=== PATIENT | female | born 1985 | race Hispanic/Latino ===

== ENCOUNTER 2017-11-24 11:00 | Observation (INO) | payer BC ==
[2017-11-24 11:26] VITALS: BP 92/58; PULSE 82
== END 2017-11-24 12:00 | disposition home or self-care (01) ==
LOC: OB 11:00
PROVIDERS: ADMIT Family Medicine; ATTEND Family Medicine
DX: Z34.83 Encounter for supervision of other normal pregnancy, third trimester (principal)
CPT/HCPCS: G0378

== ENCOUNTER 2018-01-12 05:34 | Inpatient (IN) | payer BC ==
[2018-01-12] MEDS ORDERED: Lactated Ringers 1,000 ML IV ONE ×2 (05:42→07:02)
[2018-01-12] MEDS ORDERED: Pepcid 20 MG VIAL IV SCH (05:45)
[2018-01-12] MEDS ORDERED: Reglan 10 MG/2 ML IV SCH (05:45)
[2018-01-12] MEDS ORDERED: BICITRA 30 ML CUP PO SCH (05:45)
[2018-01-12] MEDS ORDERED: CEFAZOLIN 2 GM-D5W BAG** 2 GM/50 ML ML IV SCH (06:00)
[2018-01-12] MEDS ORDERED: Lactated Ringers 1,000 ML IV SCH (06:00)
[2018-01-12 06:01] LABS: Hematocrit 40.9 % (35-47); Hemoglobin 13.9 gm/dl (12.0-16.0); Mean Cell Volume 87.2 fl (78-100); Mean Corpuscular Hemoglobin 29.6 pg (26-32); Mean Platelet Volume 11.3 fl (6-9.5); Platelet Count 196 K/mm3 (150-450); Red Blood Count 4.69 M/mm3 (4.1-5.4); White Blood Count 7.1 K/mm3 (4.0-10.5)
[2018-01-12 06:05] LABS: Appearance SLIGHTLY CLOUDY (CLEAR); Bacteria MANY /HPF (NEGATIVE); Bilirubin NEGATIVE (NEGATIVE); Blood 50 Ery/ul (0-5); Epithelial Cells MANY /HPF (FEW); Glucose NEGATIVE (NEGATIVE); Ketones NEGATIVE (NEGATIVE); Leukocyte Esterase NEGATIVE (NEGATIVE); Mucus MODERATE /HPF (NEGATIVE); Nitrite NEGATIVE (NEGATIVE); Protein,Urine Dip NEGATIVE (Negative); Urobilinogen NORMAL mg/dL (0-1)
[2018-01-12 06:40] LABS: INR 0.9 (0.8-3.0)
[2018-01-12 06:43] LABS: PTT 29.8 SECONDS (25.3-37.0)
[2018-01-12 07:20] LABS: ABO TYPING B; Antibody Screen NEGATIVE (NEGATIVE); RH TYPING POSITIVE
[2018-01-12] MEDS ORDERED: HOLD NARCOTIC ANALGESICS AND SEDATIVES X24 HR MC PRN (07:42)
[2018-01-12] MEDS ORDERED: Narcan 0.4 MG/ML IV PRN (07:42)
[2018-01-12] MEDS ORDERED: BENADRYL 50 MG/ML IV PRN (07:42)
[2018-01-12] MEDS ORDERED: PERCOCET TABLET 5/325MG PO PRN (07:42)
[2018-01-12] MEDS ORDERED: DEMEROL 50 MG IV PRN (07:42)
[2018-01-12] MEDS ORDERED: Phenergan 25 MG INJ IM PRN (07:42)
[2018-01-12] MEDS ORDERED: Nubain 10 MG/ML IV PRN (07:42)
[2018-01-12] MEDS ORDERED: MORPHINE SULFATE 2 MG INJ IV PRN (07:42)
[2018-01-12] MEDS ORDERED: Zofran 4 MG/2 ML VIAL IV PRN (07:42)
[2018-01-12] MEDS ORDERED: CLARITIN 10 MG PO PRN (07:42)
[2018-01-12] MEDS ORDERED: LANSINOH 40 GM TOP PRN (07:45)
[2018-01-12] MEDS ORDERED: Dulcolax 10 MG SUPP PR PRN (07:45)
[2018-01-12] MEDS ORDERED: TYLENOL EXTRA STRENGTH 500 MG PO PRN (07:45)
[2018-01-12] MEDS ORDERED: Anucort-HC SUPPOSITORY PR PRN (07:45)
[2018-01-12] MEDS ORDERED: CORTISONE 1% CREAM TP PRN (07:45)
[2018-01-12] MEDS ORDERED: Mylicon 80MG PO PRN (07:45)
[2018-01-12] MEDS ORDERED: TUCKS TP PRN (07:45)
[2018-01-12] MEDS ORDERED: Dermoplast Spray TP PRN (07:45)
[2018-01-12] MEDS ORDERED: Dextrose 5%-Lr IV Solution 1000 ML 1,000 ML IV SCH (08:00)
[2018-01-12 08:24] LABS: Appearance CLEAR (CLEAR); Bilirubin NEGATIVE (NEGATIVE); Blood 50 Ery/ul (0-5); Glucose NEGATIVE (NEGATIVE); Ketones NEGATIVE (NEGATIVE); Leukocyte Esterase TRACE (NEGATIVE); Nitrite NEGATIVE (NEGATIVE); Protein,Urine Dip TRACE (Negative); Specific Gravity 1.015 (1.005-1.025); Urobilinogen NORMAL mg/dL (0-1)
--- NOTE | 2018-01-12 10:05 | OP ---
SURGERY DATE/TIME: 01/12/201814 PREOPERATIVE DIAGNOSES: 1) Term intrauterine . 2) History of prior section. POSTOPERATIVE DIAGNOSES: 1) Term intrauterine . 2) History of prior section. PROCEDURE: Repeat low transverse section. SURGEON: Ishan Kemp M.D. ESTIMATED BLOOD LOSS: 300 cc. URINE OUTPUT: 100 cc of clear straw-colored urine. ANESTHESIA: Spinal by Selvin Murray CRNA. SPECIMENS: None. DESCRIPTION OF PROCEDURE: After informed written consent was obtained, the patient was taken to the operating room. She underwent spinal anesthesia and was prepped and draped in the usual sterile fashion. After adequate level of anesthesia assessed, a low transverse skin incision was made by knife through the subcutaneous fat to the level of the fascia. The fascia was nicked on both sides of the midline extended in horizontal fashion using curved Benjamin scissors. The superior free edge of the fascia was then grasped with Janeth clamps and the underlying rectus muscles were dissected free. The peritoneal cavity was then opened bluntly and extended in horizontal fashion. Bladder blade was inserted. Bladder flap was created and reflected over the lower uterine segment. A horizontal uterine incision was made by knife and carried down to the level of the amniotic membranes which were carefully artificially ruptured. A viable female with a strong cry immediately upon delivery was delivered from the vertex presentation. The cord was clamped and cut and Dr. Oates then robed and scrubbed to care for the . The placenta was removed from the uterine cavity. The uterus was exteriorized. The uterine cavity was sponge curetted clean with lap sponge. The uterine incision was closed with #1 chromic in a running locked fashion. Good closure and good hemostasis were achieved. The posterior cul-de-sac was wiped free of blood and clot and the uterus was returned to the peritoneal cavity. Lateral gutters were wiped free of blood and clot. Again, the uterine incision is inspected and noted to be hemostatic with good closure. Next, the fascia was closed with 0 Vicryl in a running fashion with good closure and good hemostasis. Subcutaneous fat was irrigated with warm, sterile saline. Any areas of bleeding were cauterized with electrocautery. Finally the skin layer was closed with 4-0 undyed Vicryl in a running subcuticular fashion. Steri-Strips and occlusive dressing were placed over the incision. The patient was transferred to the recovery in good condition.
[2018-01-12 10:21] LABS: Amphetamine,Urine NEGATIVE (NEGATIVE); Barbiturate,Urine NEGATIVE (NEGATIVE); Benzodiazepine,Urine NEGATIVE (NEGATIVE); Cocaine,Urine NEGATIVE (NEGATIVE); Methadone,Urine NEGATIVE (NEGATIVE); Opiate,Urine NEGATIVE (NEGATIVE); PCP,Urine NEGATIVE (NEGATIVE); THC,Urine NEGATIVE (NEGATIVE)
[2018-01-12] MEDS ORDERED: Ephedrine Sulfate 50 MG/ML IV ONE (11:22)
[2018-01-12] MEDS ORDERED: PHENYLEPHRINE HCL IV ONE (11:22)
[2018-01-12] MEDS ORDERED: Pitocin 10 UNITS/ML IV ONE (11:22)
[2018-01-12] MEDS ORDERED: Astramorph-Pf 5 MG/10 ML IV ONE (11:22)
[2018-01-12] MEDS ORDERED: MARCAINE 0.5%-EPI 1:200,000 VL IJ ONE (11:22)
[2018-01-12] MEDS: FERREX 150 PO SCH (12:07)
[2018-01-12] MEDS: Colace 100 MG PO SCH ×2 (12:07→21:40)
[2018-01-12] MEDS ORDERED: ZOFRAN ODT 4 MG PO PRN (15:54)
[2018-01-13 06:20] LABS: Hematocrit 34.7 % (35-47); Hemoglobin 11.5 gm/dl (12.0-16.0); Mean Cell Volume 88.7 fl (78-100); Mean Corpuscular Hemoglobin 29.4 pg (26-32); Mean Corpuscular Hgb Concent. 33.1 g/dl (32-36); Mean Platelet Volume 11.3 fl (6-9.5); Platelet Count 192 K/mm3 (150-450); Red Blood Count 3.91 M/mm3 (4.1-5.4); Red Cell Distribution Width 16.7 % (11.5-14.0); White Blood Count 11.1 K/mm3 (4.0-10.5)
[2018-01-13] MEDS ORDERED: DEMEROL 75 MG IM PRN (07:42)
[2018-01-13] MEDS ORDERED: Ambien 10 MG PO PRN (07:45)
[2018-01-13] MEDS: NORCO 5/325 MG PO PRN ×2 (08:03→20:07)
[2018-01-13] MEDS: FERREX 150 PO SCH (09:10)
[2018-01-13] MEDS: Colace 100 MG PO SCH ×2 (09:10→20:07)
[2018-01-13 09:48] VITALS: O2SAT 100
[2018-01-13] MEDS: MOTRIN 400 MG PO PRN (16:14)
[2018-01-14] MEDS: MOTRIN 400 MG PO PRN (01:56)
[2018-01-14 09:36] VITALS: BP 99/57; PULSE 80
[2018-01-14] MEDS ORDERED: THERAGRAN MULTIVITAMIN PO SCH (10:00)
[2018-01-14] MEDS: NORCO 5/325 MG PO PRN (10:02)
[2018-01-14] MEDS: FERREX 150 PO SCH (10:03)
[2018-01-14] MEDS: Colace 100 MG PO SCH (10:03)
== END 2018-01-14 10:45 | disposition home or self-care (01) | DRG 766 ==
LOC: OB 05:34
PROVIDERS: ADMIT Family Medicine; ATTEND Family Medicine
PROC: 10D00Z1 Extraction of Products of Conception, Low, Open Approach (ICD-10-PCS; principal; 2018-01-12)
DX: O34.211 Maternal care for low transverse scar from previous cesarean delivery (principal); Z37.0 Single live birth; Z3A.37 37 weeks gestation of pregnancy
CPT/HCPCS: 36415; 62322; 64488; 76937; 76942; 80307; 81000; 81002; 85027; 85610; 85730; 86850; 86900; 86901; 87086; 94799; J0690; J2274; J2370; J2405; J2590; A9270-GY

== ENCOUNTER 2020-02-12 17:29 | Emergency (ER) | payer BC, SELFPAY ==
[2020-02-12 17:40] VITALS: O2SAT 100
--- NOTE | 2020-02-12 18:27 | ERPHSYRPT ---
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 bleeding controlled on arrival, dressed with bandaid from home. approx 1.5 cm lac noted. no loss sensation distal injury. pt has fingernail [place] citizen on so unable to assess cap refil, however skin is pink warm and dry distally and proximal to injury. rates 7/10 pain. reports up to date on tetanus vaccination Physician History: Patient is a 34-year-old female presents to our ED with laceration to her left thumb. Patient was cutting watermelon at home when she accidentally injured herself. Injury occurred just prior to arrival. Laceration is 1.5 cm in length. Laceration is superficial. No involvement of the tendon. Pain is well localized. No radiation. Pain worse with palpation. There is no trauma associated with this injury. No indication for x-ray at this time. No other injuries reported. Tetanus is up-to-date. Patient otherwise healthy. Patient declined pain medication. She voiced no other complaints at this time. Timing/Duration: today Quality: burning Severity: mild Location: other (Left thumb) Possible Causes: other Modifying Factors: Improves With: other Associated Symptoms: denies symptoms Allergies/Adverse Reactions: No Known Drug Allergies Allergy (Verified 11/24/17 11:19) Home Medications: Multivitamin [Multi-Vitamin Daily] 1 each PO DAILY 02/12/20 [History] Hx Tetanus, Diphtheria Vaccination/Date Given: Yes Hx Influenza Vaccination/Date Given: No Hx Pneumococcal Vaccination/Date Given: No Travel Risk - International Travel Have you traveled outside of the country in past 3 weeks: No - Coronavirus Screening Close contact with a COVID-19 positive Pt in past 14-21 Days: No - Review of Systems Constitutional: No Symptoms, No Fever, No Chills Eyes: No Symptoms Ears, Nose, & Throat: No Symptoms Respiratory: No Symptoms, No Cough, No Dyspnea Cardiac: No Symptoms, No Chest Pain, No Edema, No Syncope Abdominal/Gastrointestinal: No Symptoms, No Abdominal Pain, No Nausea, No Vomiting, No Diarrhea Genitourinary Symptoms: No Symptoms, No Dysuria Musculoskeletal: No Symptoms, No Back Pain, No Neck Pain Skin: No Symptoms, No Rash Neurological: No Symptoms, No Dizziness, No Focal Weakness, No Sensory Changes Psychological: No Symptoms Endocrine: No Symptoms Hematologic/Lymphatic: No Symptoms Immunological/Allergic: No Symptoms All Other Systems: Reviewed and Negative - Past Medical History Pertinent Past Medical History: Yes Neurological History: No Pertinent History ENT History: No Pertinent History Cardiac History: No Pertinent History Respiratory History: No Pertinent History Endocrine Medical History: No Pertinent History Musculoskeletal History: Other GI Medical History: No Pertinent History History: No Pertinent History Psycho-Social History: No Pertinent History Female Reproductive Disorders: No Pertinent History Other Medical History: Mild Scolious - Past Surgical History Past Surgical History: Yes Neuro Surgical History: No Pertinent History Cardiac: No Pertinent History Respiratory: No Pertinent History Gastrointestinal: No Pertinent History Genitourinary: No Pertinent History Musculoskeletal: No Pertinent History Female Surgical History: Section - Social History Smoking Status: Never smoker Exposure to second hand smoke: No Drug Use: none Patient Lives Alone: No - Female History Hx Now: No - Nursing Vital Signs Nursing Vital Signs: Initial Vital Signs Pulse Rate 69 02/12/20 17:33 Respiratory Rate 18 02/12/20 17:33 Blood Pressure 106/65 02/12/20 17:33 O2 Sat by Pulse Oximetry 100 02/12/20 17:33 Pain Scale Pain Intensity 7 - Physical Exam General Appearance: no apparent distress, alert Eye Exam: PERRL/EOMI, eyes nml inspection Ears, Nose, Throat Exam: normal ENT inspection, pharynx normal, moist mucous membranes Neck Exam: normal inspection, non-tender, supple, full range of motion Respiratory Exam: normal breath sounds, lungs clear, No respiratory distress Cardiovascular Exam: regular rate/rhythm, normal heart sounds Gastrointestinal/Abdomen Exam: soft, mass, No tenderness Pelvic Exam: not done Rectal Exam: deferred Back Exam: normal inspection, normal range of motion, No CVA tenderness, No vertebral tenderness Extremity Exam: normal inspection, normal range of motion, other (1.5 cm laceration over left thumb proximal phalanx. No active bleeding. Extensor tendon intact. Compartments are soft. Sensation to light touch intact.) Neurologic Exam: alert, oriented x 3, cooperative, normal mood/affect, sensation nml, No motor deficits Skin Exam: normal color, warm, dry SpO2 Interpretation: normal SpO2: 100 O2 Delivery: Room Air Procedures - Laceration/Wound Repair Left Other Wound Location: Left, hand (Left thumb) Wound Length (cm): 1.5 Wound's Depth, Shape: superficial Wound Explored: clean Irrigated: Yes Hibiclens Prep: Yes Wound Debrided: minimal Wound Repaired With: Dermabond Layer Closure?: No Sterile Dressing Applied?: No - Course Nursing assessment & vital signs reviewed: Yes - Progress Progress: improved Progress Note: 02/12/20 18:29 Patient reassessed. Dermabond used to repair laceration. No indication for x- rays at this time. No indication for antibiotics at this time patient may follow-up with her family doctor within 48 hours for reevaluation. Plan of care discussed with patient. Patient understands the plan and voiced no other complaints concerns at this time. States that she is ready for discharge. Counseled pt/family regarding: diagnosis, need for follow-up - Departure Departure Disposition: Home Clinical Impression: Thumb laceration Condition: Stable Critical Care Time: No Referrals: ELIEL PIEDRA [Primary Care Provider] - Additional Instructions: Discharge/Care Plan MANJU HILL was seen on 02/12/20 in the Emergency Room. The patient was counseled regarding Diagnosis,Lab results, Imaging studies, need for follow up and when to return to the Emergency Room. Prescriptions given: Discharge Note I have spoken with the patient and/or caregivers. I have explained the patient's condition, diagnosis and treatment plan based on the information available to me at this time. I have answered the patient's and/or caregiver's questions and addressed any concerns. The patient and/or caregivers have as good understanding of the patient's diagnosis, condition and treatment plan as can be expected at this point. The vital signs have been stable. The patient's condition is stable and appropriate for discharge from the emergency department. The patient will pursue further outpatient evaluation with the primary care physician or other designated or consulting physician as outlined in the discharge instructions. The patient and/or caregivers are agreeable to this plan of care and follow-up instructions have been explained in detail. The patient and/or caregivers have received these instruction. The patient/and or caregivers are aware that any significant change in condition or worsening of symptoms should prompt an immediate return to this or the closest emergency department or call 911.
[2020-02-12 18:31] VITALS: BP 95/67; PULSE 68
== END 2020-02-12 18:36 | disposition home or self-care (01) ==
LOC: ED 17:29
DX: S61.012A Laceration without foreign body of left thumb without damage to nail, initial encounter (principal); W26.0XXA Contact with knife, initial encounter; Y93.G9 Activity, other involving cooking and grilling; Y92.9 Unspecified place or not applicable
CPT/HCPCS: 12001; 99283

== ENCOUNTER 2023-03-14 05:03 | Inpatient (IN) | payer BC ==
[~2023-03-14 05:03] MED LIST: Pepcid 20 MG VIAL IV SCH; Reglan 10 MG/2 ML IV SCH; SOD CITRATE-CITRIC ACID SOLN PO SCH
[2023-03-14] MEDS: Lactated Ringers 1,000 ML IV ONE ×2 (05:20→07:11)
[2023-03-14 05:43] LABS: Hematocrit 34.5 % (35-47); Hemoglobin 11.6 g/dL (12.0-16.0); Mean Corpuscular Hemoglobin 30.6 pg (26-32); Mean Corpuscular Hgb Concent. 33.6 g/dL (32-36); Mean Platelet Volume 10.2 fL (7.5-11.0); Platelet Count 247 x10^3/uL (150-450); Red Blood Count 3.79 x10^6/uL (4.1-5.4); Red Cell Distribution Width 14.8 % (11.5-14.0); White Blood Count 8.8 x10^3/uL (4.0-10.5)
[2023-03-14 05:56] LABS: Appearance Cloudy (Clear); Bacteria Rare /HPF (None Seen); Bilirubin Negative (Negative); Blood Negative (Negative); Epithelial Cells Many /HPF (None Seen); Glucose, Urine Negative (Negative); Hyaline Casts NONE SEEN /LPF (0-2); Ketones Negative (Negative); Leukocyte Esterase Negative (Negative); Nitrite Negative (Negative); Ph 6.5 (4.6-8.0); Protein,Urine Dip Negative (Negative); RBC 0-2 /HPF (0-5); Urobilinogen 0.2 mg/dL (0.2)
[2023-03-14 05:58] LABS: INR 0.88 (0.8-3.0); PROTIME 9.7 SECONDS (9.4-12.5); PTT 23.9 SECONDS (25.1-36.5)
[2023-03-14 06:06] LABS: ADD URINE CULTURE? NO (NO)
[2023-03-14] MEDS ORDERED: CEFAZOLIN 2 GM-D5W BAG** 2 GM/50 ML ML IV SCH (06:30)
[2023-03-14 06:40] LABS: ABO TYPING B; Antibody Screen NEGATIVE (NEGATIVE); RH TYPING POSITIVE
[2023-03-14 06:41] LABS: Amphetamine,Urine NEGATIVE (NEGATIVE); Barbiturate,Urine NEGATIVE (NEGATIVE); Benzodiazepine,Urine NEGATIVE (NEGATIVE); Cocaine,Urine NEGATIVE (NEGATIVE); Methadone,Urine NEGATIVE (NEGATIVE); Opiate,Urine NEGATIVE (NEGATIVE); PCP,Urine NEGATIVE (NEGATIVE); THC,Urine NEGATIVE (NEGATIVE)
[2023-03-14] MEDS ORDERED: Astramorph-Pf 5 MG/10 ML ONE (07:15)
[2023-03-14] MEDS ORDERED: Pitocin 10 UNITS/ML ONE ×2 (07:16→09:16)
[2023-03-14] MEDS ORDERED: PHENYLEPHRINE HCL ONE (07:17)
[2023-03-14] MEDS ORDERED: Lactated Ringers 1,000 ML IV ONE ×3 (07:18→10:21)
[2023-03-14] MEDS ORDERED: Marcaine 0.5%/Epinephrine 10 ML ONE ×2 (08:45→08:46)
[2023-03-14] MEDS ORDERED: Versed 2 MG/2 ML Injection ONE (08:58)
[2023-03-14] MEDS ORDERED: DIPRIVAN 200 MG/20 ML IV ONE ×3 (09:07→10:13)
[2023-03-14] MEDS ORDERED: Ketamine HCl 50 MG/ML ONE (09:35)
[2023-03-14] MEDS ORDERED: TORAdol 30 mg Injection ONE (10:29)
[2023-03-14 11:56] LABS: Hematocrit 29.2 % (35-47); Hemoglobin 9.6 g/dL (12.0-16.0)
[2023-03-14] MEDS ORDERED: PROVAYBLUE IV ONE (12:11)
[2023-03-14] MEDS: KEFZOL 1 GM/50 ML PREMIX** 1 GM/50 ML IVPB IV SCH ×3 (12:49→23:00)
[2023-03-14] MEDS ORDERED: Zofran 4 MG/2 ML VIAL IV PRN (15:37)
[2023-03-14] MEDS ORDERED: TYLENOL EXTRA STRENGTH 500 MG PO PRN (16:08)
[2023-03-14] MEDS ORDERED: Mylicon 80MG PO PRN (16:08)
[2023-03-14] MEDS ORDERED: Dulcolax 10 MG SUPP PR PRN (16:08)
[2023-03-14] MEDS ORDERED: LANSINOH 40 GM TOP PRN (16:08)
[2023-03-14] MEDS ORDERED: TORAdol 30 mg Injection IV PRN (16:12)
[2023-03-14 17:15] LABS: Hematocrit 27.5 % (35-47); Hemoglobin 9.1 g/dL (12.0-16.0)
[2023-03-14] MEDS ORDERED: PERCOCET TABLET 5/325MG ONE (20:40)
[2023-03-14] MEDS: Docusate Sodium 100 MG PO SCH (20:53)
[2023-03-14] MEDS: Dextrose 5%-Lr IV Solution 1000 ML 1,000 ML IV SCH (20:53)
[2023-03-14] MEDS: PERCOCET TABLET 5/325MG PO PRN (20:54)
[2023-03-15 04:50] LABS: Absolute Neutrophil Ct (ANC) 10.25 x10^3/uL (1.4-6.9); BASOPHIL % 0.3 % (0.0-0.4); Basophil (Absolute #) 0.04 x10^3/uL (0-0.4); Eosinophil % 0.4 % (0.00-5.0); Eosinophil (Absolute #) 0.05 x10^3/uL (0-0.5); Hematocrit 25.9 % (35-47); Hemoglobin 8.7 g/dL (12.0-16.0); IMMATURE GRAN % 0.8 % (0.00-0.4); Lymphocyte (Absolute #) 0.96 x10^3/uL (1.0-4.6); Lymphocytes % 7.8 % (24.0-44.0); Mean Cell Volume 92.5 fL (78-100); Mean Corpuscular Hemoglobin 31.1 pg (26-32); Mean Corpuscular Hgb Concent. 33.6 g/dL (32-36); Mean Platelet Volume 10.4 fL (7.5-11.0); Monocyte (Absolute #) 0.83 x10^3/uL (0.0-1.3); Monocytes % 6.8 % (0.0-12.0); Neutrophil % 83.9 % (36.0-66.0); Platelet Count 202 x10^3/uL (150-450); Red Cell Distribution Width 15.2 % (11.5-14.0); White Blood Count 12.2 x10^3/uL (4.0-10.5)
[2023-03-15 05:06] LABS: ALBUMIN 2.5 g/dL (3.5-5.0); ALKALINE PHOSPHATASE 109 U/L (38-126); ANION GAP 7.6 MEQ/L (5-15); BLOOD UREA NITROGEN 5 mg/dL (7-17); CHLORIDE 103 mmol/L (98-107); Calcium 7.8 mg/dL (8.4-10.2); Carbon Dioxide 27 mmol/L (22-30); EST GLOMERULAR FILTRATION RATE > 60.0 ML/MIN; Glucose 94 mg/dL (74-106); Potassium 3.5 mmol/L (3.5-5.1); SGOT/AST 37 U/L (14-36); SGPT/ALT 17 U/L (0-35); SODIUM 133 mmol/L (137-145); Total Protein 5.2 g/dL (6.3-8.2)
[2023-03-15] MEDS: KEFZOL 1 GM/50 ML PREMIX** 1 GM/50 ML IVPB IV SCH ×2 (05:06→11:31)
[2023-03-15] MEDS: Dextrose 5%-Lr IV Solution 1000 ML 1,000 ML IV SCH (05:06)
[2023-03-15] MEDS ORDERED: Oxy-IR 5 MG ONE (06:54)
[2023-03-15] MEDS ORDERED: PERCOCET TABLET 5/325MG ONE (07:05)
[2023-03-15] MEDS: PERCOCET TABLET 5/325MG PO PRN (07:08)
--- NOTE | 2023-03-15 08:19 | OP ---
SURGERY DATE/TIME: 03/14/2023 0737 PREOPERATIVE DIAGNOSES: 1) Term intrauterine . 2) History of prior section. 3) Desires permanent sterilization. POSTOPERATIVE DIAGNOSES: 1) Term intrauterine . 2) History of prior section. 3) Desires permanent sterilization. 4) Inadvertent cystotomy status post repair. PROCEDURES: 1) Repeat low transverse section. 2) Bilateral tubal ligation. 3) Repair of inadvertent cystotomy. SURGEON: Ishan Kemp M.D. QUANTITATIVE BLOOD LOSS: 500 ml. URINE OUTPUT: Approximate 100 ml of clear straw-colored urine in the Adler at the end of the case. ANESTHESIA: Spinal by Selvin Murray CRNA. SPECIMEN: Bilateral fallopian tube segments. DESCRIPTION OF PROCEDURE: After informed written consent was obtained and I discussed the risk of bleeding, infection and damage to surrounding tissues with the patient prior to the procedure. She signed her informed written consent prior to the beginning of the procedure. She was taken to the operating room and underwent spinal anesthesia and then was prepped and draped in the usual sterile fashion. Adequate level of anesthesia was assessed and a low transverse skin incision was made by knife and carried down through the subcutaneous fat to the level of the fascia. The fascia was nicked on both sides of the midline and extended in horizontal using curved Benjamin scissors. Next, the superior free edge of the fascia was grasped with Janeth clamps and the underlying rectus muscles were dissected free. The same was repeated inferiorly. The peritoneal cavity was opened in a blunt fashion and extended in horizontal. Bladder flap was then attempted to be created but there was significant adhesions on the peritoneal surface and anterior surface of the uterus. A uterine incision was made by knife and carried down to the amniotic membranes which were artificially ruptured with clear fluid this incision was extended in horizontal and a viable male infant was delivered from the vertex presentation with a strong cry. Oropharynx and nares were bulb suctioned. The cord was clamped and cut after it was reduced from the neck and he was handed off to the awaiting nursery team. Next, the uterus is exteriorized and the uterine incision was closed with #1 chromic in a running locked fashion with good closure and good hemostasis achieved. Next, the left fallopian tube was followed down to the fimbrial end, grasped with a Flora and a window in the mesoappendix with electrocautery. Chromic tie was then used to ligate the proximal and distal segments and the interceding tube segment was dissected free with Metzenbaum scissors. The edge of the tube was then cauterized with electrocautery. Tube segment was sent to pathology. The same was repeated on the right side. Posterior cul-de-sac was wiped free of blood and clot appeared to be clean. Next, the uterus was returned to the peritoneal cavity. At this point it was noted that there was only blood in the Adler catheter and the Adler catheter could not be palpated. Therefore it was suspected that it was placed vaginally. Due to the extensive adhesions on the front of the uterus, I was concerned about potential for bladder injury therefore had the Adler replaced and then it was palpable in the bladder but there was fairly large defect across the dome of the bladder. The bladder was open at that stage and noted to be injured during delivery. Therefore it was closed with 2-0 Vicryl in running fashion. There was inferior extension which was likewise closed with 3-0 Vicryl this was closed in two layers which appeared to have good closure and good hemostasis but there was no urine drainage from the Adler. I could palpate the Adler from the outside. There was no obvious other injury noted and the bladder injury was in the dome of the bladder very remote from the trigone. I called for Dr. Tijerina, General Surgeon, and he was available in clinic and he came over at that point in the procedure. After I closed the bladder, I had him inspect it with me and there were no other defects on the posterior or the anterior surface of the bladder. It appeared to have good closure. No obvious leakage. Next, we had methylene blue given intravenously by anesthesia. There were no obvious leaks appreciable. Dr. Tijerina likewise felt as though the repair was remote and good distance away from the trigone and there appeared to be no obvious ureteral tissues based on the area of suturing in the uterus as well as the bladder repair. Next, the Adler was irrigated and appeared as though the Adler catheter was not draining because after it was irrigated there was a large amount of urine from the bladder and we were able to inspect the bladder after it had been instilled with saline with irrigation and it appeared to expand properly with no obvious areas of leakage and again blue was seen from the methylene blue infusion. By the end of the case there was green discolored urine from the methylene blue therefore we felt confident that the bladder injury was correctly repaired and the Adler will be left in place for 14 days to insure adequate healing. Next, the uterus was returned to the peritoneal cavity. Lateral gutters were wiped free of blood and clot and there were no areas of bleeding. Again, all areas of closure appeared to have good hemostasis and good closure. The fascia was closed with 0 Vicryl in running fashion with good closure and good hemostasis. Subcutaneous fat was irrigated with warm, sterile saline and any areas of bleeding were cauterized with electrocautery. Finally, the skin layer was closed with 4-0 undyed Vicryl in a running subcuticular fashion. Good closure and good hemostasis were achieved. Steri-Strips and occlusive dressing were placed over the incision. The patient was transferred to the recovery room in good condition.
[2023-03-15] MEDS: FERREX 150 PO SCH (09:39)
[2023-03-15] MEDS: Docusate Sodium 100 MG PO SCH ×2 (09:39→20:23)
[2023-03-15] MEDS: MOTRIN 400 MG PO PRN ×2 (09:49→20:23)
--- NOTE | 2023-03-15 12:12 | CONS ---
CONSULT DATE: 03/14/2023 HISTORY: I was asked to join Dr. Ishan Kemp in the operating room for repeat section. Asked me to come over emergently from the office. I arrived and scrubbed and gowned. The baby had done well. He had done a tubal. The patient was a repeat section. Entering from the abdomen had a bladder injury on the top part of the bladder. The baby was delivered safely, according to Dr. Kemp. He had closed the top of the bladder in two layers with absorbable sutures and wanted intraoperative consult with myself. They were getting a large amount of urine out and given fluid by anesthesia. There was some serosanguinous fluid dripping down into the Adler bag. On my inspection the uterus looked fine with good closure. On the top of the bladder, there was a little bit of a T-shaped injury that had been closed transitionally with two layers of absorbable sutures as well as small craniocaudal direction part of the injury. There did not appear to be any leaking. Inspected down lower by the pelvis. They replaced the Adler. The Adler was in good position. He had reported he actually seen the balloon prior closing up the top of the bladder. Adler balloon was palpated. At this point, there did not appear to be any significant urine leaking now. Deeper down in the retropubic area over the top of the bladder, question whether option of giving some methylene blue to see if there is any area of leaking otherwise. Anesthesia did and did not see any evidence of leak and I suggested to go ahead and flush the Adler and make sure there was not any clot in it. Once this was done then the patient got a little more urine out. The urine was clear. There was just slight tinge from the methylene blue otherwise clear. When the bladder was irrigated it distended and there was no visible leak. It was felt there was not anything to do at this juncture. The bladder had been closed. There is no visible leak with methylene blue with retrograde irrigation with saline. It was felt that the Adler should stay in at least 10 to 14 days and suggest checking a cystogram prior to removal. If there are any questions, they can consult an urologist as an outpatient but at this time there does not appear to warrant any other intervention at the moment. Dr. Kemp is going to proceed with closing the fascial wound. Please see his dictation.
[2023-03-15] MEDS: NORCO 5/325 MG PO PRN ×3 (12:17→23:37)
[2023-03-15 21:50] VITALS: O2SAT 99
[2023-03-16] MEDS: KEFZOL 1 GM/50 ML PREMIX** 1 GM/50 ML IVPB IV SCH (01:14)
[2023-03-16 05:01] VITALS: TEMP 98.5
[2023-03-16] MEDS: NORCO 5/325 MG PO PRN (09:07)
[2023-03-16] MEDS: Docusate Sodium 100 MG PO SCH (09:11)
[2023-03-16] MEDS: FERREX 150 PO SCH (09:11)
--- NOTE | 2023-03-16 09:28 | PCM.DS ---
Discharge Summary Date of Admission: 03/14/23 05:03 Admitting Physician: ZEV SCANLON Consults: Consults on Case 03/14/23 05:00 Notify Anesthesia Provider ROUTINE Primary Care Provider: ZEV SCANLON Allergies Allergies No Known Drug Allergies Allergy (Verified 11/24/17 11:19) Hospital Summary - Hospital Course Hospital Course: patient had repeat with BTL at 39wks, had bladder injury at time of de livery which was repaired, Dr Tijerina was consulted during surgery with apparent good repair of bladder, irrigated mccallum and bladder expanded appropriately with no appreciable leakage following methlyene blue administration. patient has required norco for postop pain, she is tolerating po intake and passing flatus with excellent urine output postoperatively, mild lochia - Vitals & Intake/Output Vital Signs: Vital Signs Temperature 98.5 F 03/16/23 04:00 Pulse Rate 86 03/16/23 04:00 Respiratory Rate 17 03/16/23 04:00 Blood Pressure 91/53 03/16/23 04:00 O2 Sat by Pulse Oximetry 99 03/16/23 04:00 Intake & Output: Intake & Output 03/13/23 03/14/23 03/15/23 03/16/23 11:59 11:59 11:59 11:59 Intake Total 850 2400 Output Total 375 1875 1500 Balance -375 -1025 900 Weight 67.585 kg - Lab Result Diagrams: 03/15/23 04:27 03/15/23 04:27 Micro Results-Entire Visit: Microbiology 03/14/23 10:39 Urine Culture - Final Catherized NO GROWTH - Procedures and Test Procedures and Tests throughout Hospitalization: Therapy Orders & Screens 03/14/23 14:47 Standby STAT Comment: Diagnosis: Repeat Csection with bilateral tubal Discharge Exam General Appearance: no apparent distress Neurologic Exam: alert, oriented x 3 Respiratory Exam: normal breath sounds, lungs clear, No respiratory distress Cardiovascular Exam: regular rate/rhythm, normal heart sounds Gastrointestinal/Abdomen Exam: soft, other (fundus firm, incision clean, dry, intact and well approximated, bowel sounds present minimal blood tinge clearing in mccallum with excellent documented urine output) Final Diagnosis/Problem List - Final Discharge Diagnosis/Problem (1) caesarian section Current Visit: No Status: Acute (2) Intraoperative bladder injury Current Visit: Yes Status: Acute Assessment & Plan: will need cystogram scheduled at 14 days postop. advised if any problems to call office or OB department with any questions or concerns, patient and her both voiced understanding of these instructions. Code(s): N99.81 - OTHER INTRAOPERATIVE COMPLICATIONS OF GENITOURINARY SYSTEM - Discharge Disposition: Home, Self-Care Condition: Stable Prescriptions: New Docusate Sodium 100 mg [Docusate Sodium 100 MG] 100 mg PO BID #60 cap Hydrocodone/Acetaminophen [Hydrocodone-Acetamin 7.5-325] 1 each PO Q6H PRN P RN #28 tablet MDD 4 PRN Reason: Pain Cephalexin Mh 500 mg [Keflex 500 mg] 500 mg PO Q6H #28 cap Continue Pnv No.95/Ferrous Fum/Folic AC [ Vitamin Tablet] 1 tablet PO DAILY Discontinued Multivitamin [Multi-Vitamin Daily] 1 each PO DAILY Follow up with: ZEV SCANLON MD [Primary Care Provider] - 1 Week
[2023-03-16 18:18] VITALS: BP 94/56; PULSE 92; RESP 16
== END 2023-03-16 14:10 | disposition home or self-care (01) | DRG 784 ==
LOC: OB 05:03 → MED SURG 23:19 → OB 23:19
PROVIDERS: ADMIT Family Medicine; ATTEND Family Medicine
PROC: 10D00Z1 Extraction of Products of Conception, Low, Open Approach (ICD-10-PCS; principal; 2023-03-14)
PROC: 0UT70ZZ Resection of Bilateral Fallopian Tubes, Open Approach (ICD-10-PCS; 2023-03-14)
PROC: 0TQB0ZZ Repair Bladder, Open Approach (ICD-10-PCS; 2023-03-14)
DX: O34.219 Maternal care for unspecified type scar from previous cesarean delivery (principal); N99.71 Accidental puncture and laceration of a genitourinary system organ or structure during a genitourinary system procedure; Z37.0 Single live birth; Z3A.39 39 weeks gestation of pregnancy; Z30.2 Encounter for sterilization; Z20.828 Contact with and (suspected) exposure to other viral communicable diseases; Y65.8 Other specified misadventures during surgical and medical care; Y92.234 Operating room of hospital as the place of occurrence of the external cause
CPT/HCPCS: 36415; 62322; 64488; 76937; 76942; 80053; 80307; 81001; 85014; 85018; 85025; 85027; 85610; 85730; 86850; 86900; 86901; 87086; 94799; J0690; J1885; J2250; J2274; J2370; J2405; J2590; J2704; L0625; A9270-GY; Q9968